=== PATIENT | male | born 1970 | race Two or more races ===

== ENCOUNTER 2025-02-11 16:37 | Emergency (ER) | payer BC, SELFPAY ==
[2025-02-11 16:38] VITALS: BMI 30.8
[2025-02-11 16:56] VITALS: BP 121/68; PULSE 114; RESP 19; TEMP 37.3; O2SAT 96
--- NOTE | 2025-02-11 17:26 | XR_ITS ---
Examination: AP chest single view TECHNIQUE: AP portable upright chest single view Date and time: February 11, 2025, 1732 hours Comparison August 15, 2021 INDICATIONS: Leukocytosis today FINDINGS: Normal heart size. The lungs are clear. Old fracture left clavicle IMPRESSION: No active disease.
--- NOTE | 2025-02-11 17:28 | PD.EDADULT ---
ED General RME/HPI General Chief complaint: General Adult/Misc Complain Stated complaint: SENT BY PMD Time Seen by Provider: 02/11/25 17:03 Arrival date/time: 02/11/25 16:37 RME / HPI RME / HPI narrative: 55-year-old male patient was sent to us by PCP for concern regarding leukocytosis. Patient was diagnosed with abscess to the left inner thigh, about 2 weeks ago and was prescribed Bactrim which send patient is still taking it. Patient received ceftriaxone IM 4 days ago. During initial evaluation patient was noted to have leukocytosis of 30,000, today still having a leukocytosis of 26,000. Patient told me that the abscess is almost gone now. Was recently diagnosed with diabetes mellitus currently taking metformin. Patient denies any fever denies any abdominal pain denies any cough denies any chest pain denies any other complaints. Related Data Previous Rx's ?Medication ?Instructions ?Recorded ibuprofen 800 mg tablet 800 mg PO Q8H #30 tabs 08/15/19 Allergies Allergy/AdvReac Type Severity Reaction Status Date / Time No Known Allergies Allergy Verified 02/11/25 16:39 Review of Systems Review of Systems Narrative Review of Systems: Review of system reviewed and within normal limits except mentioned in HPI ED Exam Narrative Physical exam: VITAL SIGNS: Reviewed. GENERAL APPEARANCE: Alert and interactive, follows commands, no acute distress, HEAD AND FACE: Non-traumatic. ENT: PERRL, pink conjunctivitis, eyelid no trauma, Mucous membrane moist. NECK: Supple, nontender, no nuchal rigidity. CHEST: No tenderness, no crepitus, no paradoxical movement, no retractions. LUNGS: Clear, well ventilated, symmetric, no rales, no wheezing, no ronchi, no stridor, good breath sounds bilaterally. HEART: Regular rate, regular rhythm, no murmur, no gallops. ABDOMEN: Soft, positive bowel sounds, nondistended, no guarding, nontender, no rebound, no masses, RECTAL: Deferred. GENITAL: Deferred. NEUROLOGICAL: Gross motor function intact sensory function intact, Appropriate for age. MUSCULOSKELETAL: low back nontender, full range of motion. EXTREMITIES: No redness no swelling noted on the left inner thigh, full range of motion. SKIN: Color pink, dry, no rash, no lacerations, no abrasions, no contusions. LYMPHATICS: Deferred. Course Quality Measures none Orders Category Date Time Status CT Screening NOW Care 02/11/25 18:[address] chest abdomen pelvis w Stat Exams 02/11/25 18:14 Completed XR chest 1V Stat Exams 02/11/25 17:26 Completed Blood Culture (Lab) Stat Lab 02/11/25 17:54 Received CBC [CBC] Stat Lab 02/11/25 17:36 Completed CMP [Comprehensive Metabolic Panel] Stat Lab 02/11/25 17:36 Completed CRP [C-Reactive Protein] Stat Lab 02/11/25 17:36 Completed Cocci Serology IgM with reflex to IgG [Cocci Serology, Lab 02/11/25 17:54 Received Unk History] Stat ESR [Sed Rate (ESR)] Stat Lab 02/11/25 17:36 Completed Lactate (Lactic Acid) Stat Lab 02/11/25 17:36 Completed UA, C/S IF [Urinalysis, C/S if Indicated] Stat Lab 02/11/25 18:42 Completed Vital Signs Vital signs: Vital Signs Temperature 99.1 F 02/11/25 16:56 Pulse Rate 114 H 02/11/25 16:56 Respiratory Rate 19 02/11/25 16:56 Blood Pressure 121/68 02/11/25 16:56 Pulse Oximetry (%) 96 02/11/25 16:56 Oxygen Delivery Method Room Air 02/11/25 16:56 Discharge Plan Plan Patient Disposition: HOME (Self Care) Discharge Disposition comment: Stable Prescriptions/Referrals Prescriptions/Med Rec: No Action ibuprofen 800 mg tablet 800 mg PO Q8H Qty: 30 0RF Referrals: BLAKE EID [Primary Care Provider] - In 1 week Problem List Clinical Impression: Leukocytosis Patient/Caregiver Discharge Instructions Discharge Activity: activity as tolerated Education Materials: Understanding Blood and Blood ... Additional Instructions: Thank you for the opportunity for serving you today. You are stable for discharged . 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 Patient was diagnosed with abscess to the left inner thigh, about 2 weeks ago and was prescribed Bactrim which send patient is still taking it. Patient received ceftriaxone IM 4 days ago. During initial evaluation patient was noted to have leukocytosis of 30,000, today still having a leukocytosis of 26,000. Patient told me that the abscess is almost gone now. Was recently diagnosed with diabetes mellitus currently taking metformin. Patient denies any fever denies any abdominal pain denies any cough denies any chest pain denies any other complaints. Patient's workup today including CT scan of the chest abdomen pelvis came back with no acute pathology. Results discussed with the patient. Except for leukocytosis of 29.2, with predominance of lymph. Urinalysis no UTI Patient's abscess on the right upper thigh is completely healed. I did not notice any swelling or redness. Patient was advised to follow-up with power plant operations manager for outpatient workup regarding leukocytosis. To include lymphoma, malignancy, or infection. Patient agrees with the plan. Discharge diagnosis, leukocytosis.
[2025-02-11 17:50] LABS: Lactate (Lactic Acid) 1.5 mMol/L (0.4-2.0)
[2025-02-11 17:51] LABS: Basophils # (Auto) 0.2 Thou/mm3 (0.0-0.2); Basophils % (Auto) 1 % (0-2.5); Eosinophils # (Auto) 0.2 Thou/mm3 (0.0-0.5); Eosinophils % (Auto) 1 % (0-10); Hematocrit 43.1 % (41.0-53.0); Hemoglobin 15.5 g/dL (13.5-16.0); Immature Granulocytes Auto 0.07 Thou/mm3 (0.00-0.00); Lymphocytes # (Auto) 19.4 Thou/mm3 (1.0-4.8); Lymphocytes % (Auto) 66 % (10-50); Mean Corpuscular HGB Conc 36.0 g/dl (31.0-37.0); Mean Corpuscular Hemoglobin 32.2 pg (25.0-35.0); Mean Corpuscular Volume 90 fL (80-100); Monocytes # (Auto) 1.0 Thou/mm3 (0.0-0.8); Monocytes % (Auto) 3 % (0-12); Neutrophils # (Auto) 8.4 Thou/mm3 (1.8-7.7); Neutrophils % (Auto) 29 % (37-80); Nucleated Red Blood Cell # 0.00 Thou/mm3 (0.00-0.00); Nucleated Red Blood Cell % 0 /100 WBC (0); Platelet Count 205 Thou/mm3 (140-440); RDW Standard Deviation 41.7 fL (35.1-43.9); Red Blood Count 4.81 Miln/mm3 (4.50-5.90); White Blood Count 29.2 Thou/mm3 (3.8-10.6)
[2025-02-11 18:06] LABS: Sed Rate (ESR) 6 mm/hr (0-20)
[2025-02-11 18:08] VITALS: BP 120/56; PULSE 99; RESP 16; TEMP 37.2; O2SAT 95
--- NOTE | 2025-02-11 18:14 | XR_ITS ---
Examination: CT chest with intravenous contrast CT abdomen with intravenous contrast CT pelvis with intravenous contrast 2-D coronal and sagittal reconstructions Time of exam: February 11, 2025 1845 hours INDICATIONS: Leukocytosis today CTDI: vol (mGy) : 8.91 DLP: (mGycm): 699 Technique: Multiple axial images of the chest, abdomen and pelvis with intravenous contrast, 3.0 mm slice thickness. Images obtained post intravenous injection Isovue 30 cc Isovue 300 2-D sagittal and coronal reconstructions. Low dose protocols were performed. One or more of the following dose reduction techniques were used; automated exposure control, adjustment of the mA and/or KV according to patient size, use of iterative reconstruction technique. Findings: No thoracic aortic aneurysm dilatation Pulmonary artery segments are not enlarged. No paratracheal tracheobronchial or bronchopulmonary adenopathy No pneumonia pulmonary edema or pleural disease 8 mm pulmonary nodule right lower lobe image 226 No visualized liver or splenic lesion Contracted gallbladder No pancreatic or adrenal mass No renal or ureteral calculi, no hydronephrosis Normal appendix No bowel obstruction Colonic diverticulosis, no diverticulitis Prostate is irregular in contour, protruding into the base of the bladder, axial image 296, AP dimension 3.9 cm No bladder mass or bladder calculi Small fat-containing left inguinal hernia Prominent osteopenia, chronic osteoporotic compression T11 L5-S1 3 mm central lumbar disc bulge IMPRESSION: 8 mm pulmonary nodule right lower lobe, suggest 6 month follow-up CT chest without contrast No mediastinal lymphadenopathy. No pneumonia, pulmonary edema or pleural disease Normal appendix No bowel obstruction. Colonic diverticulosis, no diverticulitis Prostate is irregular in contour, protruding into the base of the bladder, recommend correlation with PSA No abdominal or pelvic abscess
[2025-02-11 18:29] LABS: Alanine Aminotransferase 41 U/L (10-49); Albumin, Serum 4.4 gm/dL (3.5-5.0); Albumin/Globulin Ratio 1.8 (1.2-2.2); Alkaline Phosphatase 82 U/L (46-116); Anion Gap 9 (7-16); Aspartate Amino Transferase 18 U/L (0-34); BUN/Creatinine Ratio 15 Ratio (12-20); Bilirubin,Total 0.5 mg/dL (0.3-1.2); Blood Urea Nitrogen 22 mg/dL (9-23); Calcium 9.2 mg/dL (8.3-10.6); Calcium (Corrected) 9.2 mg/dL (8.5-10.1); Carbon Dioxide 19.1 mMol/L (20.0-31.0); Chloride 107 mMol/L (98-107); Creatinine (Component) 1.5 mg/dL (0.6-1.3); Estimated Creatinine Clearance 65.9 mL/min (>60); Globulin 2.4 gm/dL (2.3-3.5); Glucose 184 mg/dL (74-106); Osmolality,Calculated 278 (275-295); Potassium 4.2 mMol/L (3.4-5.1); Sodium 135 mMol/L (136-145); Total Protein 6.8 gm/dL (5.7-8.2); eGFR 55 See Note
[2025-02-11 18:30] LABS: C-Reactive Protein < 0.5 mg/dL (0.0-0.9)
[2025-02-11 18:53] LABS: Collection Type, Urine Clean Catch; Squamous Epithelial Cell,Urine 0 /hpf (0-5); WBC,Urine 0 /hpf (0-5)
[2025-02-11 19:05] LABS: Bilirubin,Urine Negative (Negative); Blood,Urine Negative (Negative); Clarity,Urine Clear (Clear/Hazy); Color,Urine Lt-Yellow (Lt Yel-Yel); Culture Indicated,Urine Not Indicated; Glucose, Urine Negative (Negative); Ketones,Urine Negative (Negative); Leukocyte Esterase,Urine Negative (Negative); Nitrite,Urine Negative (Negative); PH,Urine 6.0 (5.0-7.0); Protein,Urine Negative (Neg - Trace); RBC,Urine < 1 /hpf (0-3); Specific Gravity,Urine 1.015 (1.001-1.035); Urobilinogen,Urine Negative mg/dL (0.0-1.0)
[2025-02-11 20:56] LABS: Path Review Blood Smear Sent to Pathologist
[2025-02-12 12:31] LABS: Cocci Serology, IgM Negative (Negative)
[2025-02-13 13:34] LABS: Cocci Serology, IgG Negative (Negative)
== END 2025-02-11 19:57 | disposition home or self-care (01) ==
PROVIDERS: Nurse Practitioner Family; Emergency Provider Family Medicine; PCP Nurse Practitioner Family
DX: D72.829 Elevated white blood cell count, unspecified (principal)
CPT/HCPCS: 36415; 71045; 71260; 74177; 80053; 81001; 83605; 85025; 85652; 86140; 86331; 86635; 87040; 99284; A4649; Q9967

== ENCOUNTER → 2025-05-31 | Outpatient (CLI) | payer BC, SELFPAY ==
[2025-05-31 16:37] LABS: Glucose Estimated Average 123 mg/dL (80-131); Hemoglobin A1C 5.9 % Hgb (4.8-6.0)
== END | disposition home or self-care (01) ==
LOC: COPL 15:46
PROVIDERS: PCP Nurse Practitioner Family; Referring Provider Nurse Practitioner Family; Visit Provider Nurse Practitioner Family
DX: E11.9 Type 2 diabetes mellitus without complications (principal)
CPT/HCPCS: 36415; 83036